=== PATIENT | female | born 1990 | race Caucasian/White ===

== ENCOUNTER 2018-09-09 01:04 | Emergency (ER) | payer MEDICAID ==
[~2018-09-09] VITALS: Ht 180.3 cm; Wt 131.1 kg
[2018-09-09 02:54] VITALS: BP 130/84
== END 2018-09-09 02:57 | disposition home or self-care (01) ==
LOC: ED 01:04
DX: M54.5 Low back pain (principal)
CPT/HCPCS: J1885